=== PATIENT | male | born 1945 | race Caucasian/White ===

== ENCOUNTER 2021-08-16 13:20 | Outpatient (RCR) | payer MEDICARE, OTHER, SELFPAY ==
[2021-08-16 14:31] VITALS: BP 155/80; PULSE 92; RESP 18; TEMP 36.7; O2SAT 98
[2021-08-16] MEDS: ACETAMINOPHEN 325 MG TABLET 650 MG PO (14:33)
[2021-08-16] MEDS: FAMOTIDINE 20 MG TABLET PO (14:33)
[2021-08-16] MEDS: diphenhydrAMINE HCl CAP 25 MG CAPSULE PO (14:34)
[2021-08-16 16:04] VITALS: BP 130/84
== END 2021-08-16 17:00 | disposition home or self-care (01) ==
LOC: AMCINF 13:20
PROVIDERS: PCP Physician Assistant; Referring Provider Physician Assistant; Visit Provider Internal Medicine Hematology & Oncology
DX: U07.1 COVID-19 (principal); I10 Essential (primary) hypertension; I25.10 Atherosclerotic heart disease of native coronary artery without angina pectoris; J44.9 Chronic obstructive pulmonary disease, unspecified
CPT/HCPCS: A9270; M0247